=== PATIENT | male | born 1980 | race African-American/Black ===

== ENCOUNTER 2017-10-30 01:22 | Emergency (ER) | payer SELFPAY ==
[~2017-10-30] VITALS: Ht 185.4 cm; Wt 98.0 kg
[~2017-10-30 01:22] MED LIST: NONE REPORTED
[2017-10-30 01:28] VITALS: BP 149/95
== END 2017-10-30 07:30 | disposition left against medical advice (07) ==
LOC: ER 01:22
DX: Z53.21 Procedure and treatment not carried out due to patient leaving prior to being seen by health care provider (principal)
CPT/HCPCS: J7030